=== PATIENT | female | born 1950 | race Caucasian/White ===

== ENCOUNTER → 2018-05-10 | Outpatient (CLI) | payer MEDICARE ==
--- NOTE | 2018-05-14 08:27 | MM ---
Reason for exam: screening (asymptomatic). Last mammogram was performed 3 years and 8 months ago. History: Patient is postmenopausal. Family history of breast cancer in maternal aunt at age 60. Took estrogen for 25 years. Took progesterone for 25 years. Physical Findings: A clinical breast exam by your physician is recommended on an annual basis and results should be correlated with mammographic findings. MG Screening Mammo w CAD Bilateral CC and MLO view(s) were taken. Prior study comparison: September 08, 2014, bilateral MG screening mammo w CAD. June 08, 2011, bilateral digital screening mammo w/CAD. The breast tissue is almost entirely fat. No significant changes when compared with prior studies. ASSESSMENT: Negative, BI-RAD 1 RECOMMENDATION: Routine screening mammogram of both breasts in 1 year.
== END | disposition home or self-care (01) ==
LOC: RADMAMWWP 09:38
PROVIDERS: ATTEND General Practice
DX: Z12.31 Encounter for screening mammogram for malignant neoplasm of breast (principal)
CPT/HCPCS: 77067

== ENCOUNTER → 2020-01-01 | Outpatient (CLI) | payer MEDICARE ==
[2020-01-01 15:32] LABS: HCT 44.6 % (34.0-46.0); HGB 14.2 gm/dL (11.4-16.0); MCH 29.1 pg (25.0-35.0); MCHC 31.9 g/dL (31.0-37.0); MCV 91.1 fL (80.0-100.0); Mean Platelet Volume 7.2; Platelet Count 354 k/uL (150-450); WBC 10.5 k/uL (3.8-10.6)
[2020-01-01 15:37] LABS: Appearance,Urine Cloudy (Clear); Bacteria,Urine Rare /hpf; Bilirubin,Urine Negative (Negative); Blood,Urine Negative (Negative); Color,Urine Yellow; Glucose,Urine (UA) Negative (Negative); Hyaline Casts,Urine 1 /lpf (0-2); Ketones,Urine Negative (Negative); Leukocyte Esterase,Urine Large (Negative); Mucus,Urine Occasional /hpf; Nitrite,Urine Negative (Negative); Protein,Urine Trace (Negative); RBC,Urine 4 /hpf (0-5); Specific Gravity,Urine 1.025 (1.001-1.035); Squamous Epithelial Cell,Urine 8 /hpf (0-4); Urobilinogen,Urine <2.0 mg/dL (<2.0); WBC,Urine 80 /hpf (0-5)
[2020-01-01 15:40] LABS: Albumin 4.5 g/dL (3.5-5.0); Calcium 9.2 mg/dL (8.4-10.2); Potassium 4.9 mmol/L (3.5-5.1); Total Bilirubin 0.8 mg/dL (0.2-1.3); Total Protein 7.6 g/dL (6.3-8.2)
[2020-01-01 15:47] LABS: INR 0.9 (<1.2); Partial Thromboplastin Time 23.5 sec (22.0-30.0); Prothrombin Time 9.7 sec (9.0-12.0)
== END | disposition home or self-care (01) ==
LOC: LABPAT 14:49
PROVIDERS: ATTEND Orthopaedic Surgery Sports Medicine
DX: Z01.818 Encounter for other preprocedural examination (principal); Z01.812 Encounter for preprocedural laboratory examination
CPT/HCPCS: 36415; 80053; 81001; 85027; 85610; 85730; 87070

== ENCOUNTER 2020-01-29 07:24 | Day surgery (SDC) | payer MEDICARE ==
[2020-01-27 08:22] VITALS: BMI 37.4
[~2020-01-29 07:24] MED LIST: ACETAMINOPHEN TAB 500 MG TAB PO PRN; DEXAMETHASONE SOD PHOSPHATE 4 MG/ML 1 ML VIAL IV ONE; HYDROmorphone 0.5 MG/0.5 ML SYRINGE IVP PRN; LIDOCAINE 1% (10MG/ML) FOR IV START INTRADERMA PRN; MELOXICAM 7.5 MG TAB PO PRN; MIDAZOLAM 2 MG/2 ML VIAL IV PRN; ONDANSETRON 4 MG/2 ML VIAL IVP ONE; ONDANSETRON 4 MG/2 ML VIAL IVP PRN; ROPIVACAINE 246.25 MG, EPINEPHrine 0.5 MG, KETOROLAC 30 MG, cloNIDine HCL/PF 80 MCG, WA... MISCELLANE PRN; TRANEXAMIC ACID 1,000 MG in SODIUM CHLORIDE 0.9% 100 ML IVPB PRN; VANCOMYCIN 1,250 MG in SODIUM CHLORIDE 0.9% 250 ML IVPB PRN
[2020-01-29] MEDS: LACTATED RINGERS 1,000 ML IV SCH ×3 (07:59→21:18)
[2020-01-29] MEDS ORDERED: TRANEXAMIC ACID 1,000 MG/10 ML VIAL ONE (09:17)
[2020-01-29] MEDS ORDERED: SODIUM CHLORIDE 0.9% 100 ML BAG ONE (09:17)
[2020-01-29] MEDS ORDERED: MIDAZOLAM 2 MG/2 ML VIAL ONE (09:17)
[2020-01-29] MEDS ORDERED: PROPOFOL 10 MG/ML 20 ML VIAL IV ONE (09:17)
[2020-01-29] MEDS ORDERED: PHENYLEPHRINE 10 MG/ML VIAL ONE (09:17)
[2020-01-29] MEDS ORDERED: VANCOMYCIN 1,000 MG VIAL MISCELLANE ONE (09:51)
[2020-01-29] MEDS ORDERED: ROPIVACAINE 0.2%-NS ON-Q PUMP 1,090 MG, EMPTY PAIN BALL 1 EACH MISCELLANE PRN (10:38)
--- NOTE | 2020-01-29 10:39 | P.ANPRN ---
Procedure Note - Anesthesia - Nerve Block Performed Left Adductor Canal Infusion Time Out Performed: Yes Date of Procedure: 01/29/20 Location of Patient: PreOp Indication: Acute Post-Operative Pain, Requested by Surgeon Sedation Type: Sedate with meaningful contact maintained Preparation: Sterile Prep, Sterile Dressing Position: Supine Catheter: Indwelling Needle Types: Pajunk Needle Gauge: 21 Ultrasound used to visualize needle placement: Yes Ultrasound used to observe medication spread: Yes Blood Aspirated: No Pain Paresthesia on Injection Noted: No Resistance on Injection: Normal Image Stored and Saved: Yes Events: Uneventful and Well Tolerated (ropi .5% 20cc plus dexamethasone 4mg)
[2020-01-29] MEDS ORDERED: LACTATED RINGERS 1,000 ML IV ONE (10:55)
[2020-01-29] MEDS ORDERED: ACETAMINOPHEN TAB 325 MG TAB PO PRN ×2 (11:13→18:34)
[2020-01-29] MEDS ORDERED: HYDROcodone/APAP 10-325MG 1 EACH TAB PO PRN (11:13)
[2020-01-29] MEDS ORDERED: traMADol 50 MG TAB PO PRN (11:13)
[2020-01-29] MEDS ORDERED: TEMAZEPAM 15 MG CAP PO PRN (11:13)
[2020-01-29] MEDS ORDERED: bisacodyL 10 MG SUPP RECTAL PRN (11:13)
[2020-01-29] MEDS ORDERED: ONDANSETRON 4 MG/2 ML VIAL IVP PRN (11:13)
[2020-01-29] MEDS ORDERED: NALOXONE 0.4 MG/ML 1 ML VIAL IV PRN (11:13)
[2020-01-29] MEDS ORDERED: HYDROmorphone 0.5 MG/0.5 ML SYRINGE IVP PRN ×2 (11:13)
[2020-01-29] MEDS ORDERED: diazePAM 5 MG TAB PO PRN (11:13)
[2020-01-29] MEDS ORDERED: MAGNESIUM HYDROXIDE 2,400 MG/10 ML CUP PO PRN (11:13)
[2020-01-29] MEDS ORDERED: HYDROcodone/APAP 5-325MG 1 EACH TAB PO PRN (11:13)
[2020-01-29] MEDS ORDERED: NA PHOS,M-B/NA PHOS,DI-BA 133 ML ENEMA RECTAL PRN (11:13)
[2020-01-29] MEDS ORDERED: HYDROmorphone 0.2 MG/1 ML SYRINGE IVP PRN (11:13)
[2020-01-29] MEDS ORDERED: VANCOMYCIN 1,500 MG in SODIUM CHLORIDE 0.9% 250 ML IVPB SCH (11:30)
--- NOTE | 2020-01-29 12:20 | XR ---
EXAMINATION TYPE: XR knee limited LT DATE OF EXAM: 01/29/2020 COMPARISON: None HISTORY: Knee evaluation. TECHNIQUE: 2 view left knee FINDINGS: Tibial and femoral components of in place. Soft tissue changes from surgery are evident. No acute fractures are evident. IMPRESSION: 1. No acute fracture post knee replacement
[2020-01-29] MEDS ORDERED: HYDROmorphone 0.5 MG/0.5 ML SYRINGE IVP ONE ×2 (12:30→14:00)
[2020-01-29] MEDS ORDERED: VANCOMYCIN IV PER PHARMACY 1 EACH MISC MISCELLANE PRN (15:48)
[2020-01-29] MEDS: ASPIRIN 81 MG PO SCH (20:43)
[2020-01-29] MEDS ORDERED: SENNOSIDES-DOCUSATE SODIUM 1 EACH TAB PO SCH (21:00)
--- NOTE | 2020-01-29 23:01 | P.CONS ---
History of Present Illness - Reason for Consult Consult date: 01/29/20 Medical management Requesting physician: Evans Bishop - Chief Complaint Post left total knee arthroplasty, hypothyroidism, hyperlipidemia, hypergly - History of Present Illness 69-year-old female one of Dr. Yunier Holm's patient with past medical history of hyperlipidemia, hypothyroidism, hyperglycemia and severe osteoarthritis who has been suffering from bilateral knee pain and discomfort and severe arthritis for the last 5 years become much worse lately her left side has been having significant problem did not resolve with conservative management. Patient was seen orthopedic and plan for elective left total knee arthroplasty which was done today successfully with no major complication. Patient was seen and evaluated by Dr. Holm before surgery and was cleared for surgery with no major change in management. Patient had her surgery today successfully with no major complication she was admitted to the floor afterward med reconsultation was done patient is doing well hemodynamically she still on pain management system for the knee and still on oral hydrocodone as needed. Review of Systems CONSTITUTIONAL: Well-developed no acute respiratory distress. EYES: No icterus sclerae, no conjunctivitis. EARS, NOSE, MOUTH, THROAT, and FACE: No sore throat, lymphadenopathy, carotid bruits or deformity. RESPIRATORY: No SOB cough or wheezes. CARDIOVASCULAR: No CP, Palpitation, PND, Orthopnea, or angina. GASTROINTESTINAL: No Abd pain, Nausea or vomiting, no Diarrhea or constipation, No GI Bleed, no distention or masses. GENITOURINARY: Negative for Hematuria or UTI, no kidney stones. INTEGUMENT/BREAST: Negative for any muscular injury with mild osteoarthritis.. HEMATOLOGIC/LYMPHATIC: Negative for bleed or purpura. MUSCULOSKELTAL: Negative for Myalgia or arthralgia. Left knee still been wrapped with Jayden wrap with slight edema no induration no sign of bleeding or infection. NEURLOGICAL: No LOC, Sz or syncope, blurred vision dizziness or abnormality.. BEHAVIORAL/PSYCH: Negative. ENDOCRINE: Negative. Social history: Patient quit smoking 22 years ago he smoked half pack a day for few years only no alcohol abuse and illicit drug use she is on the with her aspirin. Family history: Her mother dying at age 70 from dementia, father in his 80s from infections post surgery. Patient had 1 brothers and one sister are all living and well Past Medical History Past Medical History: GERD/Reflux, Osteoarthritis (OA), Thyroid Disorder Additional Past Medical History / Comment(s): recent UTI was tx with antibiotics History of Any Multi-Drug Resistant Organisms: None Reported Past Surgical History: Appendectomy, Tubal Ligation Additional Past Surgical History / Comment(s): colonoscopy Past Anesthesia/Blood Transfusion Reactions: No Reported Reaction Past Psychological History: No Psychological Hx Reported Smoking Status: Former smoker Past Alcohol Use History: Occasional Additional Past Alcohol Use History / Comment(s): quit smoking 22 yrs ago, started smoking in teens, Past Drug Use History: None Reported - Past Family History Mother Family Medical History: No Reported History Medications and Allergies Home Medications Medication Instructions Recorded Confirmed Type Acetaminophen Tab [Tylenol] 650 mg PO Q6H PRN 01/27/20 01/29/20 History Ibuprofen [Advil] 200 mg PO Q8HR PRN 01/27/20 01/27/20 History Levothyroxine Sodium [Synthroid] 88 mcg PO DAILY 01/27/20 01/29/20 History Allergies Allergy/AdvReac Type Severity Reaction Status Date / Time amoxicillin Allergy tongue Verified 01/29/20 08:02 swelling/hives clindamycin Allergy Rash/Hives Verified 01/29/20 08:02 Sulfa (Sulfonamide Allergy tongue Verified 01/29/20 08:02 Antibiotics) swelling/hives Physical Exam Vitals: Vital Signs Temp Pulse Pulse Resp BP Pulse Ox 01/29/20 18:21 97.6 F 77 18 111/68 91 L 01/29/20 15:28 97.9 F 76 18 140/81 95 01/29/20 14:30 70 16 124/68 97 01/29/20 14:00 72 16 112/82 96 01/29/20 13:10 79 16 138/70 97 01/29/20 12:45 66 16 115/73 97 01/29/20 12:15 66 16 126/68 96 01/29/20 12:00 66 16 135/76 97 01/29/20 11:45 75 16 127/64 92 L 01/29/20 11:30 72 16 127/65 93 L 01/29/20 11:15 70 16 125/60 94 L 01/29/20 11:10 97.6 F 78 14 121/68 92 L 01/29/20 08:53 72 16 119/58 97 01/29/20 07:52 98.0 F 79 16 143/84 97 Intake and Output 01/29/20 01/29/20 01/29/20 06:59 14:59 22:59 Intake Total 1350 500 Output Total 220 Balance 1130 500 Intake: IV 1350 500 Output: Urine 120 Estimated Blood Loss 100 Other: # Voids 3 Weight 100.2 kg General Appearance: Alert, cooperative, no distress, appears stated age. Neck HEENT: Supple, no lymphadenopathy, no thyroid enlargement, no carotid bruits. Lungs: Clear to auscultation without crackles or wheezes no rhonchi, no deformity. Chest Wall: Chest wall normal expansion with deep inspiration no tenderness and no deformity was found on exam, no costochondral pain or discomfort. Heart: Regular rate and rhythm, S1, S2 normal, no murmur, rub or gallop. Back: Symmetric, no curvature, ROM normal, no CVA tenderness. Abdomen: Soft, non-tender, bowel sounds active all four quadrants, no masses, no organomegaly. Extremities: Extremities normal, atraumatic, no cyanosis or edema. Incision of the left knee looks fine with no hematoma or bleeding. Pulses: 2+ and symmetric. Skin: Skin color, texture, tugor normal, no rashes or lesions. Neurologic: Alert oriented x3 cranial nerves II through XII intact, no motor deficit, no abnormal balance or gait. Assessment and Plan Assessment: 1 post left total knee arthroplasty: Doing very well post surgery stable hemodynamically resume home meds, continue to watch patient pain pain control and management continue to watch urine output. 2 Hypothyroidism: Resume levothyroxine. 3 hyperglycemia: On diet control only. 4 hyperlipidemia: Remain on diet control. 5 GI prophylaxis: Patient be on Pepcid 20 mg daily. 6 pain control: Continue patient use oral hydrocodone along with pain management system remain activity at home patient was home. CODE STATUS: Full code. Admit patient to the inpatient status for more than 2 night stay.
[2020-01-30] MEDS: LACTATED RINGERS 1,000 ML IV SCH ×2 (05:51→08:28)
[2020-01-30] MEDS ORDERED: VANCOMYCIN 1,750 MG in SODIUM CHLORIDE 0.9% 500 ML 500 ML IVPB SCH (06:00)
[2020-01-30 06:05] LABS: Basophils % (A) 0 %; Eosinophils % (A) 0 %; HCT 37.9 % (34.0-46.0); HGB 12.4 gm/dL (11.4-16.0); Lymphocytes # (A) 1.3 k/uL (1.0-4.8); Lymphocytes % (A) 8 %; MCH 29.3 pg (25.0-35.0); MCHC 32.8 g/dL (31.0-37.0); MCV 89.3 fL (80.0-100.0); Mean Platelet Volume 7.2; Monocytes # (A) 0.7 k/uL (0-1.0); Monocytes % (A) 5 %; Neutrophils # (A) 12.9 k/uL (1.3-7.7); Neutrophils % (A) 86 %; Platelet Count 317 k/uL (150-450); RBC 4.24 m/uL (3.80-5.40); RDW 13.7 % (11.5-15.5); WBC 14.9 k/uL (3.8-10.6)
[2020-01-30] MEDS ORDERED: LEVOTHYROXINE 88 MCG TAB PO SCH (06:30)
[2020-01-30 08:00] VITALS: BP 107/68; PULSE 65; RESP 18; TEMP 98
[2020-01-30] MEDS: ASPIRIN 81 MG PO SCH (08:26)
--- NOTE | 2020-01-30 10:32 | P.PN ---
Progress Note - Text 01/29/20 630am 69-year-old female status post total knee replacement by Dr. Bishop . Patient has an On-Q pump for postop pain control, patient seen and evaluated this morning, patient has a VAS of 3 at rest. Plan to continue On-Q pump infusion
--- NOTE | 2020-01-30 11:44 | P.DS ---
Providers Expected date of discharge: 01/30/20 Attending physician: Evans Bishop Consults: 01/29/20 11:13 Consult Physician Routine Consulting Provider: Shemar Palomares Reason/Comments: post op medical management Do you want consulting provider notified?: Yes Primary care physician: Y[facility]ier [facility] Course: Patient was admitted to the OR on 11/29/2019 to undergo a left total knee arthroplasty. She had failed conservative measures as an outpatient and desired to proceed with elective surgery after given informed consent. She underwent the above procedure which she tolerated well without complication. Postoperative hospital course has remained without complication. On day of discharge she is afebrile, vital signs stable, labs within acceptable ranges, tolerating by mouth meds and diet, voiding without difficulty, positive flatus, denies abdominal pain or calf pain, pain is controlled on oral pain medication and has no new complaints. Wound is benign, neurovascular status is intact, calf is soft and nontender, abdomen soft and nontender. Review of systems is negative for numbness, tingling, fever, chills, chest pain, shortness of breath, nausea, vomiting, dizziness, headaches, slurred speech or other. Procedures: Left TKA Patient Condition at Discharge: Good Plan - Discharge Summary Discharge Rx Participant: No New Discharge Prescriptions: New Aspirin [Adult Low Dose Aspirin EC] 81 mg PO BID #60 tablet. Docusate [Colace] 100 mg PO BID #60 capsule HYDROcodone/APAP 7.5-325MG [[place] 7.5-325] 1 - 2 each PO Q6HR PRN #42 tab PRN Reason: Pain No Action Levothyroxine Sodium [Synthroid] 88 mcg PO DAILY Ibuprofen [Advil] 200 mg PO Q8HR PRN PRN Reason: Pain Acetaminophen Tab [Tylenol] 650 mg PO Q6H PRN PRN Reason: Pain Discharge Medication List Acetaminophen Tab [Tylenol] 650 mg PO Q6H PRN 01/27/20 [History] Ibuprofen [Advil] 200 mg PO Q8HR PRN 01/27/20 [History] Levothyroxine Sodium [Synthroid] 88 mcg PO DAILY 01/27/20 [History] Aspirin [Adult Low Dose Aspirin EC] 81 mg PO BID #60 tablet. 01/30/20 [Rx] Docusate [Colace] 100 mg PO BID #60 capsule 01/30/20 [Rx] HYDROcodone/APAP 7.5-325MG [[place] 7.5-325] 1 - 2 each PO Q6HR PRN #42 tab 01/30/20 [Rx] Follow up Appointment(s)/Referral(s): [facility], [NON-STAFF] - ([facility] will contact you to set up your first physical therapy appointment. ) Evans Bishop MD [STAFF PHYSICIAN] - 02/10/20 9:35 am Patient Instructions/Handouts: Joint Replacement Surgery (DC) Activity/Diet/Wound Care/Special Instructions: WBAT Take meds as directed F/U with Dr. Bishop in office May shower in 3 days if no bleeding Keep wound clean and dry Discharge Disposition: HOME WITH HOME HEALTH SERVICES
--- NOTE | 2020-01-30 11:44 | P.PN ---
Subjective Progress Note Date: 01/30/20 HISTORY OF PRESENT ILLNESS 69-year-old female one of Dr. Yunier Holm's patient with past medical history of hyperlipidemia, hypothyroidism, hyperglycemia and severe osteoarthrit is who has been suffering from bilateral knee pain and discomfort and severe arthritis for the last 5 years become much worse lately her left side has been having significant problem did not resolve with conservative management. Patient was seen orthopedic and plan for elective left total knee arthroplasty which was done today successfully with no major complication. Patient was seen and evaluated by Dr. Holm before surgery and was cleared for surgery with no major change in management. Patient had her surgery today successfully with no major complication she was admitted to the floor afterward med reconsultation was done patient is doing well hemodynamically she still on pain management system for the knee and still on oral hydrocodone as needed. 01/29: Patient has just finished walking or doing stairs with physical therapy and did very well. She did have a dressing change done this morning for breakthrough bleeding. Pain is currently controlled and patient has a Q-pump in place. She has been afebrile, heart rate 65, blood pressure 107/68, pulse ox 93% on room air. WBC 14.9, hemoglobin 12.4. She is reaching 15 mL on incentive spirometry. Patient is cleared for medicine for discharge home today. REVIEW OF SYSTEMS CONSTITUTIONAL: Well-developed no acute respiratory distress. No fever, no chills. EYES: No icterus sclerae, no conjunctivitis. EARS, NOSE, MOUTH, THROAT, and FACE: No sore throat, lymphadenopathy, carotid bruits or deformity. RESPIRATORY: No SOB cough or wheezes. CARDIOVASCULAR: No CP, Palpitation, PND, Orthopnea, or angina. GASTROINTESTINAL: No Abd pain, Nausea or vomiting, no Diarrhea or constipation, No GI Bleed, no distention or masses. GENITOURINARY: Negative for Hematuria or UTI, no kidney stones. INTEGUMENT/BREAST: Negative for any muscular injury with mild osteoarthritis.. HEMATOLOGIC/LYMPHATIC: Negative for bleed or purpura. MUSCULOSKELTAL: Negative for Myalgia or arthralgia. Left knee still been wrapped with Jaydne wrap with slight edema no induration no sign of bleeding or infection. NEURLOGICAL: No LOC, Sz or syncope, blurred vision dizziness or abnormality.. BEHAVIORAL/PSYCH: Negative. ENDOCRINE: Negative. PHYSICAL EXAMINATION General Appearance: Alert, cooperative, no distress, appears stated age. Patient is sitting in chair at the bedside. Neck HEENT: Supple, no lymphadenopathy, no thyroid enlargement, no carotid bruits. Lungs: Clear to auscultation without crackles or wheezes no rhonchi, no deformity. Chest Wall: Chest wall normal expansion with deep inspiration no tenderness and no deformity was found on exam, no costochondral pain or discomfort. Heart: Regular rate and rhythm, S1, S2 normal, no murmur, rub or gallop. Back: Symmetric, no curvature, ROM normal, no CVA tenderness. Abdomen: Soft, non-tender, bowel sounds active all four quadrants, no masses, no organomegaly. Extremities: Extremities normal, atraumatic, no cyanosis or edema. Incision of the left knee looks fine with no hematoma or bleeding. Pulses: 2+ and symmetric. Skin: Skin color, texture, tugor normal, no rashes or lesions. Neurologic: Alert oriented x3 cranial nerves II through XII intact, no motor deficit, no abnormal balance or gait. ASSESSMENT AND PLAN 1 post left total knee arthroplasty, postop day #1: Doing very well post surgery stable hemodynamically resume home meds, continue to watch patient pain pain control and management continue to watch urine output. Continue incentive spirometry. 2 Hypothyroidism: Resume levothyroxine. 3 hyperglycemia: On diet control only. 4 hyperlipidemia: Remain on diet control. 5 GI prophylaxis: Patient be on Pepcid 20 mg daily. 6 pain control: Continue patient use oral hydrocodone along with pain management system remain activity at home patient was home. CODE STATUS: Full code. DISCHARGE PLAN Home with [facility] Impression and plan of care have been directed as dictated by the signing physician. Pao Donnelly nurse practitioner acting as scribe for signing physician. Objective - Vital Signs Vital signs: Vital Signs Temp 98.0 F 01/30/20 07:59 Pulse 65 01/30/20 07:59 Resp 18 01/30/20 07:59 BP 107/68 01/30/20 07:59 Pulse Ox 93 L 01/30/20 07:59 Intake & Output 01/29/20 01/30/20 01/30/20 18:59 06:59 18:59 Intake Total 1850 480 Output Total 220 Balance 1630 480 Weight 100.2 kg Intake: IV 1850 Oral 480 Output: Urine 120 Estimated Blood Loss 100 Other: # Voids 3 1 - Labs CBC & Chem 7: 01/30/20 05:35 Labs: Abnormal Lab Results - Last 24 Hours (Table) 01/30/20 Range/Units 05:35 WBC 14.9 H (3.8-10.6) k/uL Neutrophils # 12.9 H (1.3-7.7) k/uL
[2020-01-30] MEDS ORDERED: MULTIVITAMINS, THERA 1 EACH TAB PO SCH (12:00)
[2020-01-30 16:14] LABS: African American GFR (CKD) 75.1 (60.0-200.0); Non-African American GFR(CKD) 64.8 (60.0-200.0)
--- NOTE | 2020-02-02 11:56 | OP ---
OPERATIVE REPORT DATE OF PROCEDURE: 01/29/2020 SURGEON: Evans Bishop MD. GALLERY OR MUSEUM CURATOR: Sai MENDOZA. PREOPERATIVE DIAGNOSIS: Left knee osteoarthrosis. POSTOPERATIVE DIAGNOSIS: Left knee osteoarthrosis. PROCEDURE PERFORMED: Left total knee arthroplasty. ANESTHESIA: Spinal with sedation. ESTIMATED BLOOD LOSS: 100 mL. TOURNIQUET: Tourniquet time was 49 minutes at 250 mmHg. DRAINS: None. COMPLICATIONS: None apparent. DISPOSITION: Postanesthesia care unit. INDICATIONS: Angle is a 69-year-old female with longstanding history of left knee pain. History and physical examination are consistent with advanced left knee osteoarthrosis. She has been through significant nonoperative management up to this point. Further treatments options were discussed and she decided to go forward with a left total knee arthroplasty. The risks of procedure were discussed with her in detail. These risks include, but are not limited to risk of infection, nerve damage, bleeding, pain, and a small risk of deep vein thrombosis which could lead to fatal pulmonary embolism. There is also risk of loosening of the implant which could require revision operation. The patient understands these risks. All of her questions were answered to her satisfaction. Appropriate informed consent was obtained. DESCRIPTION OF PROCEDURE: Patient identified in the preoperative holding area. Surgical sites marked by both the patient and myself. She was given 2 g of Ancef IV for prophylactic purposes. She was then transferred to the operative suite. She was placed supine on the operative table. A spinal anesthetic was then administered, dosed per the Anesthesia Department without apparent complication. An examination under anesthesia was then performed. The patient was 5-7 degrees shy of full extension. She had 95 degrees of flexion. The medial collateral ligament, lateral collateral ligament and posterior cruciate ligaments were stable. Tourniquet was then placed high on the left upper thigh well-padded in preparation for surgery. The patient's left lower extremity than prepped and draped in usual sterile fashion. Standard surgical pause was undertaken to ensure that we were operating the correct site and that appropriate preop antibiotics were given. All staff were in agreement. We proceeded. The outlines of the patella were marked with a surgical pen. A planned 12 cm vertical incision centered over the patella was marked with surgical pen. Leg was then exsanguinated with an Esmarch dressing. The knee was then flexed and the tourniquet was inflated to 250 mmHg. The total tourniquet time for the procedure was 49 minutes. Incision was then made with a 10 blade scalpel. Dissection carried down sharply overlying fascia. Great care was taken to minimize the skin flaps. The knee was then exposed using a standard medial parapatellar approach. A small cuff of quadriceps tendon was then left for suturing. She was in a bit of varus preoperatively. A standard medial release was then made. Superficial medial collateral ligament was dissected off the bone around the posterior aspect of the proximal tibia. The medial meniscus was then excised as well. The lateral meniscus was also released anteriorly. The leg was then externally rotated. The patella was everted. The knee was flexed. The retractors then placed to protect the collateral ligaments. I then proceeded to remove the infrapatellar fat pad. This was excised sharply tangentially with fibers of the patellar tendon. We then proceeded to remove the peripheral osteophytes. This is done with a rongeur. I then proceeded with the distal femoral resection. She did have a small flexion contracture. A planned 11 mm resection was then done. The femoral canal was then entered to the midline of the femur approximately 10 mm anterior to the origin of the posterior cruciate ligament. The jimmy was then advanced down the center of the femur and placed intramedullary. Based on the preoperative radiographs, the angle to between the anatomic and mechanical axis of the femur was approximately 4-5 degrees. The valgus angle of the distal femoral cutting guide was then set at 4 degrees for the left knee. This femoral cutting guide was then advanced over the anterior intramedullary jimmy. This was seated firmly against the femur. I then as mentioned planned to take 11 mm off the distal femur. The cutting block was then secured onto the femur with pins. The jig was then removed and the femoral cut was made through the slot of the block. The pins then removed. The distal cutting block was removed. The accuracy of the distal femoral cuts were checked with 2 flat bars. I then proceeded with femoral sizing. The posterior referencing sizing guide was held firmly against the resected distal surface of the femur. The posterior condyles were resting on the posterior plane of the guide. The sizing stylus was then placed onto the anterior femur. The Sizer was measured as a size 8. I then assessed for femoral rotation. The plan was for 3 degrees of external rotation. Three degrees of external rotation was placed onto the jig. These holes were then marked. We then confirmed the rotation by 3 separate methods. This done using epicondylar axis as well as Whitesides line and posterior referencing. It was deemed that the external rotation was proper. I then went forward placing the femoral cutting block. This was placed over the previously placed pin holes. The Slick wing was then placed onto the anterior slots to ensure that we would not notch the anterior femur with the anterior femoral cut. We then proceeded with the anterior femoral cut. This was flush with the anterior cortex of the femur. The posterior cuts were then made followed by the anterior chamfer cut, then the posterior chamfer cut. The cutting block was then removed. Throughout the resection, the collateral ligaments were protected with retractors. I then placed a trial size 8 femur. It was slightly wide medial to lateral, but the narrow fit very nicely and it fit flush with the distal end of the femur. The drill holes were then made. I then proceeded with the tibial cut. I planned for cruciate retaining knee. The guide was placed and set for varus valgus and then for slope. It was set for approximate 2 mm resection from the medial tibial plateau which was the lower side. I was happy with the alignment amount of resection. The cutting block was then pinned to the proximal tibia. The alignment jimmy was removed. The proximal tibia was resected with a reciprocating saw. Again this was done with retractors protecting the collateral ligaments as well as the posterior cruciate ligament. I then proceeded to evaluate the flexion and extension gaps. A 10 mm block was then placed. The flexion-extension gaps were equal. I then proceeded with resection of posterior osteophytes. She had very extensive posterior osteophytes. This is done using a curved osteotome. This resected the posterior osteophytes and posterior capsule stripping was done off the posterior aspect of the femur at this time. The osteophytes were then removed. I then proceeded with resection of the patella. The thickness of the patella was measured using the caliper. The thickness was 22 mm. The thickness of the anticipated patellar dome was taken into account. The resection was then performed and confirmed to be equal in four quadrants using a caliper. Approximately 14 mm of bone remained after resection. A 29 x 8 standard patellar trial was then placed. The patellar holes were drilled and the trial was then placed. I then proceeded with sizing the tibial plate. A size C tibial plate fit very nicely. I then placed the trial femur of the tibial tray in the patellar button. A 10 mm trial tibial insert was also placed. The components fit very nicely. She had full extension and flexion. The extension and flexion gaps were equal and stable to both varus and valgus stress. The patella tracked appropriately. The tibial tray rotation was then marked with a Bovie. This was externally rotated properly. I then proceeded with tibial preparation. The posterior holes were drilled and I removed the femoral component. The tibial tray was then set for proper external rotation as well as mediolateral placement onto the tibia. This was then pinned into place. I then proceeded with punching the keel. I then decided to proceed with cementing of all of our components. The knee was thoroughly irrigated with sterile saline solution via pulse lavage. The lateral geniculate artery was identified and cauterized. The bone of the tibia, femur, and patella was irrigated via pulse lavage. I then proceed with cementing of our components. Two packs of antibiotic bone cement were prepared on the back table by the surgical consultant. I then proceed with cementing the tibia first. The cement was impacted in the keel as well as deeply seated into the bone. A second coat of cement was then placed. The tibia was then impacted into place. Excess cement was removed with Sade's and jokers. I then proceeded with cementing the femoral component. The femoral component was also cemented using standard technique. Excess cement was removed. A 10 mm trial insert was then placed into the knee. This the knee was brought into full extension with a constant axial load placed until the cement had hardened. The patellar component was then cemented. This held firmly with a compressive device until the cement had dried. When the cement had dried, the knee was taken out of extension. All excess cement was removed from around the prosthesis. I then trialed the knee with a 10 mm insert. Flexion and extension gaps were appropriate. The knee was stable. It came from full extension. I decided to go for the 10 mm cross-linked cruciate-retaining tibial insert. Polyethylene was then placed on the tibial tray and locked into place. The knee was then reduced. The knee was again further irrigated with sterile saline solution with antibiotic added. The tourniquet was then deflated. The total tourniquet time for the procedure was 49 minutes at 250 mmHg. Final components were Matt Persona size 8 narrow cruciate-retaining femoral component, a size C tibial tray, a 10 mm medial congruent cruciate-retaining polyethylene insert, and a 29 x 8 mm patella. I then proceeded with closure. Again, the knee was thoroughly irrigated. The quadriceps tendon and the medial retinaculum were reapproximated with #2 Ethibond suture. The extensor mechanism was then closed with a running #2 Quill suture. Subcutaneous tissues were then closed with 2-0 Vicryl interrupted suture. The skin was closed with a running 2-0 Quill suture. Dermabond was applied to the incision. Sterile compressive dressing was then applied. All sponge and needle counts were deemed correct prior to closure. The patient tolerated the procedure without apparent complication. She was transferred recovery room in stable condition. MMODL / IJN: [id number] /
== END 2020-01-30 12:05 | disposition home health service (06) ==
LOC: OR 07:24 → 4SSUR 14:52 → OR 01-30 12:05
PROVIDERS: ATTEND Orthopaedic Surgery Sports Medicine
DX: M17.12 Unilateral primary osteoarthritis, left knee (principal); M25.762 Osteophyte, left knee; E03.9 Hypothyroidism, unspecified; E78.5 Hyperlipidemia, unspecified; R73.9 Hyperglycemia, unspecified; K21.9 Gastro-esophageal reflux disease without esophagitis; Z87.891 Personal history of nicotine dependence; Z98.51 Tubal ligation status; Z90.49 Acquired absence of other specified parts of digestive tract; Z79.890 Hormone replacement therapy; Z79.899 Other long term (current) drug therapy; Z79.1 Long term (current) use of non-steroidal anti-inflammatories (NSAID); Z88.2 Allergy status to sulfonamides; Z88.0 Allergy status to penicillin; Z88.1 Allergy status to other antibiotic agents; Z97.3 Presence of spectacles and contact lenses
CPT/HCPCS: 97110; 97161; 64448; 76942; 82565; 85025; 88300; 73560; 27447; C1776; C1713; J2250; J0171; J3370 ×2; J1100; J2370; J2405; J1885; J2795 ×2; J2704; J0735; J1170

== ENCOUNTER → 2020-08-23 | Outpatient (CLI) | payer MEDICARE ==
--- NOTE | 2020-08-26 11:12 | MM ---
Reason for exam: screening (asymptomatic). Last mammogram was performed 2 years and 3 months ago. History: Patient is postmenopausal. Family history of breast cancer in maternal aunt at age 60. Took estrogen for 25 years. Took progesterone for 25 years. Physical Findings: A clinical breast exam by your physician is recommended on an annual basis and results should be correlated with mammographic findings. MG 3D Screening Mammo W/Cad Bilateral CC, MLO, and XCCL view(s) were taken. Prior study comparison: May 10, 2018, bilateral MG screening mammo w CAD. September 08, 2014, bilateral MG screening mammo w CAD. There are scattered fibroglandular densities. There is no discrete abnormality. ASSESSMENT: Negative, BI-RAD 1 RECOMMENDATION: Routine screening mammogram of both breasts in 1 year.
== END | disposition home or self-care (01) ==
LOC: RADMAMWWP 13:33
PROVIDERS: ATTEND Family Medicine
DX: Z12.31 Encounter for screening mammogram for malignant neoplasm of breast (principal); Z78.0 Asymptomatic menopausal state; Z80.3 Family history of malignant neoplasm of breast
CPT/HCPCS: 77063; 77067

== ENCOUNTER 2020-10-05 10:02 | Emergency (ER) | payer MEDICARE ==
[2020-10-05] MEDS ORDERED: ACETAMINOPHEN TAB 500 MG TAB PO STA (10:22)
[2020-10-05] MEDS ORDERED: IBUPROFEN 600 MG TAB PO STA (10:22)
[2020-10-05] MEDS ORDERED: DEXAMETHASONE SOD PHOSPHATE 10 MG/ML 1 ML VIAL IV STA (10:23)
[2020-10-05] MEDS ORDERED: ALBUTEROL HFA INHALER INHALATION STA (10:23)
--- NOTE | 2020-10-05 10:40 | ED ---
General Adult HPI - General Chief complaint: Shortness of Breath Stated complaint: Covid+/KIRBY Time Seen by Provider: 10/05/20 10:18 Source: patient, RN notes reviewed Mode of arrival: wheelchair Limitations: no limitations - History of Present Illness Initial comments: 69-year-old female presents to the emergency Department with chief complaint of COVID-19. Patient states she tested positive at home 1 week ago. Patient states that she called her primary care physician told her just to stay home and she is to worsen to come emergency department. Patient is not receiving monoclonal antibodies. She states she was a former smoker 24 years ago. Loi noemi does admit to fevers chills bodyaches has not taken any recent Tylenol Motrin. Patient had slight diarrhea no vomiting. Patient states she had increasing cough congestion shortness of breath which she presents emergency department for - Related Data Home Medications Medication Instructions Recorded Confirmed Acetaminophen Tab [Tylenol Tab] 1,000 mg PO Q6HR PRN 10/05/20 10/05/20 Levothyroxine Sodium [Euthyrox] 88 mcg PO DAILY 10/05/20 10/05/20 Multivitamins, Thera [Multivitamin 1 tab PO DAILY 10/05/20 10/05/20 (formulary)] Previous Rx's Medication Instructions Recorded Dexamethasone [Decadron] 6 mg PO DAILY #5 tablet 10/05/20 Allergies Allergy/AdvReac Type Severity Reaction Status Date / Time amoxicillin Allergy tongue Verified 10/05/20 11:12 swelling/hives clindamycin Allergy Rash/Hives Verified 10/05/20 11:12 Sulfa (Sulfonamide Allergy tongue Verified 10/05/20 11:12 Antibiotics) swelling/hives Review of Systems ROS Statement: Those systems with pertinent positive or pertinent negative responses have been documented in the HPI. ROS Other: All systems not noted in ROS Statement are negative. Past Medical History Past Medical History: Thyroid Disorder History of Any Multi-Drug Resistant Organisms: None Reported Past Surgical History: Appendectomy, Tubal Ligation Past Psychological History: No Psychological Hx Reported Smoking Status: Never smoker Past Alcohol Use History: None Reported Past Drug Use History: None Reported General Exam Limitations: no limitations General appearance: alert, in no apparent distress Head exam: Present: atraumatic, normocephalic, normal inspection Eye exam: Present: normal appearance, PERRL, EOMI. Absent: scleral icterus, conjunctival injection, periorbital swelling ENT exam: Present: normal exam, normal oropharynx, mucous membranes moist, TM's normal bilaterally Neck exam: Present: normal inspection, full ROM. Absent: tenderness, meningismus, lymphadenopathy Respiratory exam: Present: normal lung sounds bilaterally. Absent: respiratory distress, wheezes, rales, rhonchi, stridor Cardiovascular Exam: Present: regular rate, normal rhythm, normal heart sounds. Absent: systolic murmur, diastolic murmur, rubs, gallop, clicks GI/Abdominal exam: Present: soft, normal bowel sounds. Absent: distended, tenderness, guarding, rebound, rigid Course Vital Signs 10/05/20 10/05/20 10/05/20 10:07 10:10 12:19 Temperature 101.7 F H 99.6 F Pulse Rate 97 80 Respiratory 20 22 20 Rate Blood Pressure 122/72 120/58 O2 Sat by Pulse 93 L 92 L Oximetry Medical Decision Making - Medical Decision Making Patient's x-ray does show bilateral COVID-19 Pneumonia. Vitals show pulse ox around 93 with no obvious dyspnea. Patient was provided inhalers, monoclonal antibodies and will be discharged with close follow-up and strict return parameters were discussed. - Lab Data Result diagrams: 10/05/20 10:34 10/05/20 10:34 Lab Results 10/05/20 10/05/20 10/05/20 Range/Units 10:34 10:34 11:41 WBC 9.2 (3.8-10.6) k/uL RBC 4.80 (3.80-5.40) m/uL Hgb 14.3 (11.4-16.0) gm/dL Hct 43.1 (34.0-46.0) % MCV 90.0 (80.0-100.0) fL MCH 29.8 (25.0-35.0) pg MCHC 33.2 (31.0-37.0) g/dL RDW 15.0 (11.5-15.5) % Plt Count 287 (150-450) k/uL MPV 7.7 Neutrophils % 89 % Lymphocytes % 6 % Monocytes % 3 % Eosinophils % 1 % Basophils % 1 % Neutrophils # 8.2 H (1.3-7.7) k/uL Lymphocytes # 0.5 L (1.0-4.8) k/uL Monocytes # 0.2 (0-1.0) k/uL Eosinophils # 0.1 (0-0.7) k/uL Basophils # 0.1 (0-0.2) k/uL Sodium 135 L (137-145) mmol/L Potassium 4.2 (3.5-5.1) mmol/L Chloride 101 (98-107) mmol/L Carbon Dioxide 24 (22-30) mmol/L Anion Gap 10 mmol/L BUN 19 H (7-17) mg/dL Creatinine 0.81 (0.52-1.04) mg/dL Est GFR (CKD-EPI)AfAm 86 (>60 ml/min/1.73 sqM) Est GFR (CKD-EPI)NonAf 74 (>60 ml/min/1.73 sqM) Glucose 117 H (74-99) mg/dL Calcium 8.3 L (8.4-10.2) mg/dL Total Bilirubin 0.7 (0.2-1.3) mg/dL AST 73 H (14-36) U/L ALT 37 H (4-34) U/L Alkaline Phosphatase 99 (38-126) U/L Total Protein 6.7 (6.3-8.2) g/dL Albumin 3.8 (3.5-5.0) g/dL Coronavirus (PCR) Detected A (Not Detectd) Disposition Clinical Impression: COVID-19 Disposition: HOME SELF-CARE Condition: Stable Instructions (If sedation given, give patient instructions): Coronavirus Disease 2019 (COVID-19) Additional Instructions: Please return to the Emergency Department if symptoms worsen or any other concerns. Prescriptions: Dexamethasone [Decadron] 6 mg PO DAILY #5 tablet Is patient prescribed a controlled substance at d/c from ED?: No Referrals: Yunier Holm MD [Primary Care Provider] - 1-2 days Time of Disposition: 13:32
[2020-10-05 10:47] LABS: Basophils # (A) 0.1 k/uL (0-0.2); Basophils % (A) 1 %; Eosinophils # (A) 0.1 k/uL (0-0.7); Eosinophils % (A) 1 %; HCT 43.1 % (34.0-46.0); HGB 14.3 gm/dL (11.4-16.0); Lymphocytes # (A) 0.5 k/uL (1.0-4.8); Lymphocytes % (A) 6 %; MCH 29.8 pg (25.0-35.0); MCHC 33.2 g/dL (31.0-37.0); Mean Platelet Volume 7.7; Monocytes # (A) 0.2 k/uL (0-1.0); Monocytes % (A) 3 %; Neutrophils # (A) 8.2 k/uL (1.3-7.7); Neutrophils % (A) 89 %; Platelet Count 287 k/uL (150-450); WBC 9.2 k/uL (3.8-10.6)
--- NOTE | 2020-10-05 10:57 | XR ---
EXAMINATION TYPE: XR chest 2V DATE OF EXAM: 10/05/2020 COMPARISON: NONE HISTORY: Worsening cough and flulike symptoms TECHNIQUE: Frontal and lateral views of the chest are obtained. FINDINGS: There are multifocal left greater than right mid to lower lung opacities. No pleural effus ion or pneumothorax seen bilaterally. The cardiac silhouette size is within normal limits with athero sclerotic change aortic knob. The osseous structures are intact. IMPRESSION: Bilateral multifocal left greater than right mid to lower lung opacities consistent with known covid-19 infection.
[2020-10-05 10:58] LABS: Albumin 3.8 g/dL (3.5-5.0); Calcium 8.3 mg/dL (8.4-10.2); Potassium 4.2 mmol/L (3.5-5.1); Total Bilirubin 0.7 mg/dL (0.2-1.3); Total Protein 6.7 g/dL (6.3-8.2)
[2020-10-05] MEDS ORDERED: SODIUM CHLORIDE 0.9% 50 ML IVPB ONE (12:45)
[2020-10-05] MEDS ORDERED: CASIRIVIMAB (REGN10933) (EUA) 600 MG, IMDEVIMAB (REGN10987) (EUA) 600 MG in SODIUM CHLO... IVPB ONE (13:00)
[2020-10-05 14:17] VITALS: RESP 18; TEMP 99.2
[2020-10-05 15:23] VITALS: BP 117/68; PULSE 81
== END 2020-10-05 15:23 | disposition home or self-care (01) ==
LOC: EC 10:02
DX: U07.1 COVID-19 (principal); E07.9 Disorder of thyroid, unspecified; Z88.2 Allergy status to sulfonamides; Z88.1 Allergy status to other antibiotic agents; Z90.49 Acquired absence of other specified parts of digestive tract; Z98.51 Tubal ligation status
CPT/HCPCS: 99285; 96365; 96375; 36415; 94640; 80053; 85025; 87635; 71046; J1100; Q0243

== ENCOUNTER → 2022-05-03 | Outpatient (CLI) | payer MEDICARE ==
--- NOTE | 2022-05-03 18:24 | MM ---
Reason for Exam: Screening (asymptomatic). Last mammogram was performed 1 year(s) and 8 month(s) ago. Patient History: Menarche at age 11. First Full-Term at age 16. Left ovary removed at age 32. Right ovary removed at age 32. Hysterectomy at age 32. Postmenopausal. Patient used Estrogen for 25 years. Patient used Progesterone for 25 years. Maternal aunt had breast cancer, age 60. Risk Values: Chana 5 year model risk: 1.3%. NCI Lifetime model risk: 3.3%. Prior Study Comparison: 09/08/2014 Bilateral Screening Mammogram, [facility]. 05/10/2018 Bilateral Screening Mammogram, [facility]. 08/23/2020 Bilateral Screening Mammogram, [facility]. Tissue Density: The breast tissue is almost entirely fat. Findings: Analyzed By CAD. There is no suspicious group of microcalcifications or new suspicious mass in either breast. Overall Assessment: Negative, BI-RAD 1 Management: Screening Mammogram of both breasts in 1 year. 1. Patient should continue monthly self breast exams. 2. A clinical breast exam by your physician is recommended on an annual basis. 3. This exam should not preclude additional follow-up of suspicious palpable abnormalities. Electronically signed and approved by: Nando Pavon M.D. Radiologist
== END | disposition home or self-care (01) ==
LOC: RADMAMWWP 07:02
PROVIDERS: ATTEND Family Medicine
DX: Z12.31 Encounter for screening mammogram for malignant neoplasm of breast (principal); Z78.0 Asymptomatic menopausal state; Z80.3 Family history of malignant neoplasm of breast
CPT/HCPCS: 77063; 77067

== ENCOUNTER → 2024-06-24 | Outpatient (CLI) | payer MEDICARE ==
--- NOTE | 2024-06-24 10:17 | MM ---
Reason for Exam: Screening (asymptomatic). Last mammogram was performed 2 year(s) and 2 month(s) ago. Patient History: Menarche at age 11. First Full-Term at age 16. Left ovary removed at age 32. Right ovary removed at age 32. Hysterectomy at age 32. Postmenopausal. Patient used Estrogen for 25 years. Patient used Progesterone for 25 years. Maternal aunt had breast cancer, age 60. Risk Values: Chana 5 year model risk: 1.3%. NCI Lifetime model risk: 3.0%. Prior Study Comparison: 05/10/2018 Bilateral Screening Mammogram, [facility]. 08/23/2020 Bilateral Screening Mammogram, [facility]. 05/03/2022 Bilateral MG 3D screening mammo w/cad, [facility]. Tissue Density: The breasts are almost entirely fatty. Findings: Analyzed By CAD. Right breast: There is no suspicious group of microcalcifications or new suspicious mass. Left breast: There is no suspicious group of microcalcifications or new suspicious mass. Overall Assessment: Negative, BI-RAD 1 Management: Screening Mammogram of both breasts in [address] [facility] will attempt to contact patient to return for supplemental views and ultrasound if indicated. Patient should continue monthly self-breast exams. A clinical breast exam by your physician is recommended on an annual basis. This exam should not preclude additional follow-up of suspicious palpable abnormalities. Note on Chana scores and lifetime risk: 1. A Chana score greater than 3% is considered moderate risk. If this is the case, consider specialist referral to assess eligibility for a risk reducing agent. 2. If overall lifetime risk for the development of breast cancer is 20% or higher, the patient may qualify for future screening with alternating mammogram and breast MRI. [facility], , 06/24/2024 10:14 AM. Electronically signed and approved by: Jose Carlos Walker DO
== END | disposition home or self-care (01) ==
LOC: RADMAMWWP 09:43
PROVIDERS: ATTEND Family Medicine
DX: Z12.31 Encounter for screening mammogram for malignant neoplasm of breast (principal); R92.313 Mammographic fatty tissue density, bilateral breasts; Z78.0 Asymptomatic menopausal state; Z80.3 Family history of malignant neoplasm of breast
CPT/HCPCS: 77063; 77067